=== PATIENT | male | born 2000 | race Hispanic/Latino ===

== ENCOUNTER 2020-07-23 12:38 | Emergency (ER) | payer OTHER, SELFPAY ==
--- NOTE | 2020-07-23 12:50 | DI.RAD.S_ITS ---
PROCEDURE: XR WRIST RT MIN 3V INDICATIONS: FOOSH, pain TECHNIQUE: 5 views of the wrist were acquired. COMPARISON: None. FINDINGS: Bones: No fractures or dislocations. No suspicious bony lesions. Scaphoid view: Scaphoid intact Soft tissues: There are numerous densities projecting over the soft tissues of the distal forearm, just proximal to the wrist and closer to the elbow. These are of uncertain etiology and significance. IMPRESSION: Numerous densities projecting over the soft tissues of the distal forearm are of uncertain etiology and significance. No evidence acute bony abnormality of the right wrist. If clinical suspicion and/or symptoms persist, further assessment with repeat plain films, or advanced imaging (e.g., CT, MRI, or bone scan) may be helpful for further assessment. Dictated by: Sushil Barreto M.D. on 07/23/2020 at 13:14 Approved by: Sushil Barreto M.D. on 07/23/2020 at 13:15
--- NOTE | 2020-07-23 12:50 | DI.RAD.S_ITS ---
PROCEDURE: XR HAND RT MIN 3V INDICATIONS: FOOSH, pain TECHNIQUE: 3 views of the hand(s) acquired. COMPARISON: [facility], CR, XR WRIST RT MIN 3V, 07/23/2020, 12:52. FINDINGS: Bones: No acute fractures or dislocations. No suspicious bony lesions. Soft tissues: Numerous densities overlying the distal forearm and also in the region of the 4th and 5th digits are of uncertain etiology and significance. IMPRESSION: 1. Numerous soft tissue densities are of uncertain etiology and significance. Do they correlate with potential radiopaque foreign bodies? 2. No evidence acute bony abnormality of the right hand Dictated by: Sushil Barreto M.D. on 07/23/2020 at 13:15 Approved by: Sushil Barreto M.D. on 07/23/2020 at 13:18
[2020-07-23 12:52] VITALS: BP 128/76; PULSE 86; RESP 16; TEMP 36.4; O2SAT 99; BMI 49.5
--- NOTE | 2020-07-23 13:07 | ED.UPPEXIN ---
HPI - Extremity Injury (Upper) <FRANKO Alberts - Last Filed: 07/23/20 14:23> General Chief Complaint: Extremity Injury, Upper Stated Complaint: hurt right arm at work Time Seen by Provider: 07/23/20 12:45 Source: patient Mode of arrival: Ambulatory Limitations: no limitations History of Present Illness HPI narrative: The patient is a 19-year-old male, right-hand dominant, nonsmoker who presents with a chief complaint of right hand and wrist pain. He slipped and fell, has a FOOSH injury to his right arm. Denies hitting his head any neck or back pain. This happened recently prior to arrival. Nothing has been taken for pain. No ice has been applied. He denies any other injuries other than his right hand and wrist. He states is just below his right pinky finger extending down to his wrist, decreased range of motion noted. 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 Related Data Allergies Allergy/AdvReac Type Severity Reaction Status Date / Time No Known Drug Allergies Allergy Verified 07/23/20 12:57 Review of Systems <FRANKO Alberts - Last Filed: 07/23/20 14:23> Review of Systems Narrative: GENERAL: Denies chills, fatigue, malaise, fever, sweats. HEENT: Denies sinus pain, ear pain, sore throat, difficulty swallowing, dizziness. RESPIRATORY: Denies dyspnea, cough, wheezing, hemoptysis, sputum. CARDIOVASCULAR: Denies chest pain, palpitations, orthopnea, edema, GASTROINTESTINAL: Denies nausea, vomiting, abdominal pain, diarrhea, constipation, melena. : Denies dysuria, frequency, incontinence, hematuria, urinary retention. MUSCULOSKELETAL: See HPI SKIN: Denies rash, skin lesions, or other NEUROLOGIC: Denies weakness, headache, numbness, change in speech, confusion, seizures, incoordination. PSYCHIATRIC: No concerning psychosocial issues. 12 point review of systems is negative except for those stated above Patient History <FRANKO Alberts - Last Filed: 07/23/20 14:23> Social History Smoking Status: Never smoker Smoking Status: Never smoker alcohol intake frequency: 0-2 drinks per day Substance Use Type: does not use Exam <LIZBETH Alberts - Last Filed: 07/23/20 14:23> Narrative Exam Narrative: GENERAL: This is a well-nourished, well-developed patient, no acute distress HEAD: Atraumatic. Normocephalic. No temporal or scalp tenderness. EYES: Pupils equal round and reactive. Extraocular motions intact. No scleral icterus. No injection or drainage. ENT: Nose without bleeding, purulent drainage or septal hematoma. Throat without erythema, tonsillar hypertrophy or exudate. Uvula midline. Airway patent. NECK: Trachea midline. No JVD or lymphadenopathy. Supple, nontender, no meningeal signs. CARDIOVASCULAR: Regular rate and rhythm RESPIRATORY: Cough. No increased respiratory effort. No accessory muscle use. Speaking full sentences. GASTROINTESTINAL: Abdomen soft, non-tender, nondistended. No hepato-splenomegaly, or palpable masses. No guarding. EXTREMITIES: Pain to palpation right hand distal to right 5th digit extending down through wrist. No snuffbox pain to palpation. Able to extend, pronate supinate arm, no pain on flexion and extension of right wrist. Able to fully flex and extend right elbow, no pain to palpation shoulder. BACK: Nontender without deformity or crepitance. No flank tenderness. NEURO: AOx3. SKIN: No rash or erythema on visible skin. No erythema ecchymosis laceration or abrasion noted on right arm. [place] flecks noted. Initial Vital Signs Initial Vital Signs: Vital Signs Temperature 97.6 F 07/23/20 12:52 Pulse Rate 86 07/23/20 12:52 Respiratory Rate 16 07/23/20 12:52 Blood Pressure 128/76 07/23/20 12:52 Pulse Oximetry 99 07/23/20 12:52 <Ruth Lowe DO - Last Filed: 07/24/20 07:09> Initial Vital Signs Initial Vital Signs: Vital Signs Temperature 97.6 F 07/23/20 12:52 Pulse Rate 86 07/23/20 12:52 Respiratory Rate 16 07/23/20 12:52 Blood Pressure 128/76 07/23/20 12:52 Pulse Oximetry 99 07/23/20 12:52 Scores <LIZBETH Alberts - Last Filed: 07/23/20 14:23> GCS [place] coma scale eye opening: Spontaneous Kayla coma scale verbal response: Orientated [place] coma scale motor response: Obey commands Kayla coma scale total score: 15 Course <LIZBETH Alberts - Last Filed: 07/23/20 14:23> Orders Ordered: ED Orders 07/23/20 12:50 XR hand RT min 3V Stat XR wrist RT min 3V Stat Vital Signs Vital signs: Vital Signs - 8 hr 07/23/20 12:52 07/23/20 14:05 Temperature 97.6 F Pulse Rate 86 83 Respiratory Rate 16 16 Blood Pressure 128/76 117/60 Pulse Oximetry 99 99 <Ruth Lowe DO - Last Filed: 07/24/20 07:09> Orders Ordered: ED Orders 07/23/20 12:50 XR hand RT min 3V Stat XR wrist RT min 3V Stat Vital Signs Vital signs: Vital Signs - 8 hr 07/23/20 12:52 07/23/20 14:05 Temperature 97.6 F Pulse Rate 86 83 Respiratory Rate 16 16 Blood Pressure 128/76 117/60 Pulse Oximetry 99 99 MDM - Extremity Injury (Upper) <LIZBETH Alberts - Last Filed: 07/23/20 14:23> Differential Diagnosis Differential diagnosis: Likely sprain and strain of wrist and fracture of wrist Imaging Data Extremity x-ray #1: Radiologist's Impression: [address] [place] [address] XRay Report Signed Patient: Jeovany Bryson JMR#: [id number] : 2000Acct:[id number] Age/Sex: 19 / MDate of Service: 07/23/20 Loc: ED Accession Number: [id number] Procedure: XR wrist RT min 3V Ordering Provider: Jazmine Garnica PROCEDURE: XR WRIST RT MIN 3V INDICATIONS: FOOSH, pain TECHNIQUE: 5 views of the wrist were acquired. COMPARISON: None. FINDINGS: Bones: No fractures or dislocations. No suspicious bony lesions. Scaphoid view: Scaphoid intact Soft tissues: There are numerous densities projecting over the soft tissues of the distal forearm, just proximal to the wrist and closer to the elbow. These are of uncertain etiology and significance. IMPRESSION: Numerous densities projecting over the soft tissues of the distal forearm are of uncertain etiology and significance. No evidence acute bony abnormality of the right wrist. If clinical suspicion and/or symptoms persist, further assessment with repeat plain films, or advanced imaging (e.g., CT, MRI, or bone scan) may be helpful for further assessment. Dictated by: Sushil Barreto M.D. on 07/23/2020 at 13:14 Approved by: Sushil Barreto M.D. on 07/23/2020 at 13:15 Extremity x-ray #2: Radiologist's Impression: [facility] [address] [place] [id number] XRay Report Signed Patient: Jeovany Bryson JMR#: [id number] : 2000Acct:[id number] Age/Sex: MDate of Service: 07/23/20 Loc: ED Accession Number: [id number] Procedure: XR hand RT min 3V Ordering Provider: Jazmine Garnica-RAZIA PROCEDURE: XR HAND RT MIN 3V INDICATIONS: FOOSH, pain TECHNIQUE: 3 views of the hand(s) acquired. COMPARISON: [facility], XR WRIST RT MIN 3V, 07/23/2020, 12:52. FINDINGS: Bones: No acute fractures or dislocations. No suspicious bony lesions. Soft tissues: Numerous densities overlying the distal forearm and also in the region of the 4th and 5th digits are of uncertain etiology and significance. IMPRESSION: 1. Numerous soft tissue densities are of uncertain etiology and significance. Do they correlate with potential radiopaque foreign bodies? 2. No evidence acute bony abnormality of the right hand Dictated by: Sushil Barreto M.D. on 07/23/2020 at 13:15 Approved by: Sushil Barreto M.D. on 07/23/2020 at 13:18 MDM Narrative Medical decision making narrative: The patient is a 19-year-old male who presents with a chief complaint of right hand and wrist pain after ground level fall at work. He has reassuring range of motion, is neurovascular intact throughout stay in the emergency department and has negative x-rays. Radiology notes multiple foreign bodies, though there is no evidence of skin injury or foreign body from his injury. However the patient has zinc paint over his right forearm, which I believe is causing this foreign body appearance. The patient declined any pain medications in the emergency department today. I discussed at length rest ice compression elevation as well as [id number] pain medications as needed and able, encouraged the patient contact [employer] and [employer] to help arrange follow-up provider in the next few days, discussed the possibility of occult fracture. Did discuss resting the right hand and wrist over the next few days. Of note the patient's employer requested a drug screen, the patient consented to this, but I discussed with the employer that emergency department drug screens do not check for the same things or have the same thresholds has [employer] and [employer] drug screens, so elected to hold off on the ED drug screen today. Patient has no questions or concerns upon discharge and states understanding of return precautions as well as follow-up care. Discharge Plan Departure Patient Disposition: Home Clinical Impression: Sprain and strain of wrist, Sprain and strain of hand Discharge Date/Time: 07/23/20 14:16 Instructions: DI for Wrist Sprain, How To Perform RICE (Rest, Ice, Compress, Elevate), DI for Hand Injury Activity Restrictions/Additional Instructions: Thank you for trusting us with your care today As I discussed, your x-ray shows no acute fracture. This does not rule out a soft tissue injury such as a ligament or tendon injury. It is important that you follow up with primary care provider, especially if worsening or no improvement. There can be fractures that did not show up on initial x-ray. Please use rest ice compression elevation as well as [id number] pain medication as needed and able Please follow up with [facility] for a follow up provider Stand Alone Forms: Work Release Note <Ruth Lowe DO - Last Filed: 07/24/20 07:09> Cosign ED Attending Ketan Attestation: I was immediately available in the department for consultation. Documentation has been reviewed. I agree with assessment and plan.
[2020-07-23 14:05] VITALS: BP 117/60; PULSE 83; RESP 16; O2SAT 99
== END 2020-07-23 14:16 | disposition home or self-care (01) ==
PROVIDERS: Emergency Provider Nurse Practitioner Family
DX: S63.91XA Sprain of unspecified part of right wrist and hand, initial encounter (principal); S66.911A Strain of unspecified muscle, fascia and tendon at wrist and hand level, right hand, initial encounter; W19.XXXA Unspecified fall, initial encounter; Y99.0 Civilian activity done for income or pay
CPT/HCPCS: 73110; 73130; 99281; 99283